=== PATIENT | female | born 1935 | race Caucasian/White ===

== ENCOUNTER 2017-08-08 11:02 | Outpatient (CLI) | payer MEDICARE | END 2017-08-08 11:03 | disposition home or self-care (01) | LOC: BICMAMMO 11:02 | PROVIDERS: ATTEND Internal Medicine | DX: Z12.31 Encounter for screening mammogram for malignant neoplasm of breast (principal) | CPT/HCPCS: 77063; 77067 ==

== ENCOUNTER 2017-11-26 20:36 | Inpatient (IN) | payer MEDICARE ==
[~2017-11-26 20:36] MED LIST: ISOVUE-370 76%-LOCM 1 ML ONE
[2017-11-26] MEDS ORDERED: HYDROcodone/Acetaminophen 5/325 mg Tablet ONE (21:08)
[2017-11-26 21:40] LABS: #Basophils 0.1 thou/uL (0.0-0.2); #Eosinphils 0.1 thou/uL (0.0-0.7); #Lymphocytes 1.9 thou/uL (1.20-3.40); #Monocytes 0.7 thou/uL (0.11-0.59); #Neutrophils 7.6 thou/uL (1.40-6.50); %Basophils 0.7 % (0.0-1.0); %Eosinophils 1.2 % (0.0-10.0); %Lymphocytes 17.9 % (21.0-51.0); %Monocytes 6.9 % (0.0-10.0); %Neutrophils 73.3 % (42.0-75.0); Hemoglobin 13.6 g/dL (12.0-16.0); Mean Corpuscular HGB CONC 34.1 g/dL (32.0-36.0); Mean Corpuscular Hemoglobin 29.5 pg (27.0-31.0); Mean Corpuscular Volume 86.5 fL (78.0-98.0); Mean Platelet Volume 6.7 fL (7.4-10.4); Platelet Count 222 thou/uL (130-400); RBC Distribution Width 13.5 % (11.5-14.5); Red Blood Cell (RBC) Count 4.59 mill/uL (4.20-5.40); White Blood Cell (WBC) Count 10.4 thou/uL (4.8-10.8)
[2017-11-26 21:43] LABS: INR-International Normal Ratio 1.5; PTT 39.8 SEC (22.9-36.1); Prothrombin Time 18.1 SEC (12.0-14.7)
[2017-11-26 21:53] LABS: ALT (SGPT) 19 U/L (8-55); AST (SGOT) 19 U/L (5-34); Albumin 4.4 g/dL (3.4-4.8); Alkaline Phosphatase 65 U/L (40-150); Anion Gap 12 mmol/L (10-20); BUN (Urea Nitrogen) 21 mg/dL (9.8-20.1); Bilirubin, Total 0.6 mg/dL (0.2-1.2); Calc. Creatinine Clearance 0 mL/min (70-130); Carbon Dioxide 28 mmol/L (23-31); Chloride 105 mmol/L (98-107); Estimated GFR-MDRD 49; Globulin 3.2 g/dL (2.4-3.5); Glucose 168 mg/dL (83-110); Lipase 55 U/L (8-78); Protein, Total 7.6 g/dL (6.0-8.3); Sodium 141 mmol/L (136-145)
--- NOTE | 2017-11-26 22:00 | RAD ---
RIGHT ELBOW FOUR VIEW: 11/26/17 HISTORY: Trauma. COMPARISON: None. FINDINGS: No acute displaced fracture or malalignment. Evidence of chronic medial and lateral epicondylitis. No significant joint effusion. IMPRESSION: No acute fracture or malalignment. POS: HOME
--- NOTE | 2017-11-26 22:01 | RAD ---
RIGHT KNEE TWO VIEW: 11/26/17 HISTORY: Trauma. COMPARISON: None. FINDINGS: No fracture. No malalignment. There is moderate vascular calcifications. IMPRESSION: No acute displaced fracture. POS: HOME
--- NOTE | 2017-11-26 22:03 | RAD ---
LEFT TIBIA AND FIBULA TWO VIEW: 11/26/17 HISTORY: Trauma. Injury. COMPARISON: None. FINDINGS: Tibia and fibula appear to be intact. Mild medial joint space narrowing. Low grade circumferential so ft tissue edema. IMPRESSION: No acute displaced fracture or malalignment. POS: HOME
[2017-11-26] MEDS ORDERED: Bupivacaine 0.5% 10 ML VIAL ONE (23:15)
--- NOTE | 2017-11-26 23:17 | CT ---
NONCONTRAST HEAD CT 11/26/17 HISTORY: Patient fell prior to arrival. Posttraumatic pain. COMPARISON: None. TECHNIQUE: Noncontrast head CT is performed from skull base to skull vertex. FINDINGS: There is a hyperdensity in the left parietal lobe with associated punctate calcifications. This lesio n measures 0.9 cm. 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 However, in th e setting of trauma, short term followup imaging is recommended to exclude a possible bleed associate d with the cavernoma. There are white matter hypodensities due to chronic small vessel ischemic whitehead e. Cortical jhaveri-white matter Differentiation is preserved. There is no hydrocephalus. The calvarium is intact. Adequate aeration o f the sinuses and mastoid air cells. IMPRESSION: Hyperdensity involving the left cerebrum as described above. Short term followup imaging should be pe rformed tomorrow morning. Results of the study discussed with Dr. Gonzalez, 11/26/17 at 10:59 p.m. Code CR POS: [facility]
--- NOTE | 2017-11-26 23:28 | CT ---
CHEST CT WITH CONTRAST ABDOMEN CT WITH CONTRAST PELVIC CT WITH CONTRAST LIMITED CT OF THE THORACIC AND LUMBAR SPINE 11/26/17 HISTORY: Left upper quadrant pain. Left chest pain. Status post fall. COMPARISON: None. FINDINGS: CHEST CT: No mediastinal mass, lymphadenopathy or hematoma. Heart size is within normal limits. No pericardial effusion. The thoracic aorta and abdominal aorta have an overall normal caliber. No periaortic fat st randing. There is significant atherosclerotic disease involving both renal arteries. Note is made of an IVC filter. Note is also made of a stent which appears to be in the left iliac vein. There are dependent atelectatic changes. No consolidation or mass. No significant pleural fluid. No p neumothorax. Trachea and central bronchi are patent. ABDOMEN CT: There is appropriate enhancement of the solid organs. No evidence of solid organ injury. There is no fluid in Wells's pouch. Adrenal glands are unremarkable. There is hypodensities involving the head and body of the pancreas. Possibility of a pancreatic neopl asm cannot be excluded. Evaluation is limited on this examination. Correlation made with an abdomen M RI report does document simple cystic lesions of the pancreas. Symmetric enhancement of the kidneys. No obstructive uropathy. No mesenteric mass, lymphadenopathy, free air or free fluid. Limited evaluation of the alimentary canal due to lack of oral contrast. No evidence of bowel obstruc tion. PELVIC CT: There are diverticula in the left hemicolon. No diverticulitis. No pelvic mass, lymphadenopathy, free air or free fluid. Unremarkable urinary bladder. Surgically absent uterus. There are fractures involving the left 7th, 8th, 9th, and 10th ribs. There is a hematoma in the overl anayeli soft tissues/musculature. Small hematoma involving the lateral abdominal muscles is noted. Bony pelvis is intact. No bony pelvic fractures. LIMITED CT OF THE THORACIC AND LUMBAR SPINE: Limited CT of the thoracic and lumbar spine demonstrates extensive degenerative change. Thoracic and lumbar spine vertebral body height is maintained. There is no fracture. There is mild leftward curvat ure of the upper lumbar spine. IMPRESSION: 1. Left rib fractures as described above. No associated pneumothorax. 2. Hypodensities associated with the pancreas. Patient has known cystic lesions of the pancreas. Results of the study discussed with Carlos, 11/26/17 at 11:12 p.m. Code CR POS: [facility]
[2017-11-27] MEDS ORDERED: Ondansetron HCl/PF 4 MG/2 ML Vial IVP PRN (01:10)
[2017-11-27] MEDS ORDERED: Ondansetron ODT 4 MG TAB SL PRN (01:10)
[2017-11-27] MEDS ORDERED: Acetaminophen 325 MG TAB PO PRN (01:10)
[2017-11-27 01:45] VITALS: BMI 26.7
[2017-11-27] MEDS ORDERED: Dextrose 5% in Water 1,000 ML IV PRN (04:08)
[2017-11-27] MEDS ORDERED: Dextrose 50% Abboject 50 ML SYRINGE SLOW IVP PRN (04:08)
[2017-11-27] MEDS ORDERED: Sodium Chloride 0.9% 1,000 ML IV SCH (04:08)
[2017-11-27 04:49] LABS: #Lymphocytes 1.6 thou/uL (1.20-3.40); #Monocytes 0.6 thou/uL (0.11-0.59); #Neutrophils 5.7 thou/uL (1.40-6.50); %Basophils 0.4 % (0.0-1.0); %Eosinophils 0.4 % (0.0-10.0); %Lymphocytes 19.9 % (21.0-51.0); %Monocytes 7.3 % (0.0-10.0); Hemoglobin 12.1 g/dL (12.0-16.0); Mean Corpuscular Volume 90.8 fL (78.0-98.0); Mean Platelet Volume 7.1 fL (7.4-10.4); Platelet Count 202 thou/uL (130-400); RBC Distribution Width 13.3 % (11.5-14.5); Red Blood Cell (RBC) Count 4.04 mill/uL (4.20-5.40)
[2017-11-27 04:52] LABS: INR-International Normal Ratio 1.5; PTT 38.2 SEC (22.9-36.1); Prothrombin Time 17.8 SEC (12.0-14.7)
[2017-11-27 04:59] LABS: Anion Gap 12 mmol/L (10-20); BUN (Urea Nitrogen) 18 mg/dL (9.8-20.1); Calc. Creatinine Clearance 52 mL/min (70-130); Calcium 9.4 mg/dL (7.8-10.44); Carbon Dioxide 27 mmol/L (23-31); Chloride 105 mmol/L (98-107); Estimated GFR-MDRD 61; Glucose 129 mg/dL (83-110); Magnesium 2.2 mg/dL (1.6-2.6); Phosphorus 3.8 mg/dL (2.3-4.7); Potassium 4.1 mmol/L (3.5-5.1); Sodium 140 mmol/L (136-145)
[2017-11-27] MEDS: traMADol HCl 50 MG TAB PO PRN ×3 (05:40→20:16)
--- NOTE | 2017-11-27 06:42 | HP ---
DATE OF ADMISSION: 11/27/2017 REQUESTING PHYSICIAN: Dr. Gonzalez. ATTENDING SURGEON: Dr. Wallace. CONSULTATIONS: Neurosurgery, Dr. Nguyen. HISTORY OF PRESENT ILLNESS: Patient is an 82-year-old woman who was moving a table this ev ening. When she lost her footing, slipped and fell, hitting her right knee on the ground and hitting her left side of her chest on the table. The patient denied any loss of consciousness or hitting he r head. She denied any syncopal type episodes around her fall only that she lost her footing trying to move a table. The patient was driven by her to the emergency room in [facility], where she underwent evaluation and examination and was noted to have history of Xarelto use, so curt brewer underwent a head CT, which showed a cavernoma, which there was concern of a delayed bleed, so we we re asked to evaluate the patient for admission and neurosurgical consultation. Patient also underwen t CT of the chest, abdomen, and pelvis which showed left-sided rib fractures, which again for pain co ntrol reasons were asked to admit the patient. While in the emergency department in [facility], patient received a rib block by Dr. Gonzalez, which the patient states helped greatly to allow her to breathe deeper. ALLERGIES: None. CURRENT MEDICATIONS: Nexium, levothyroxine, Xarelto, potassium, allopurinol, metoprolol, furosemide, amlodipine-valsartan, simvastatin, alprazolam, montelukast, tramadol, vitamin D, and vitamin B. PAST MEDICAL HISTORY: History of recurrent DVTs, history of pulmonary embolus. Chronic back pain, s coliosis, osteoarthritis, hypothyroidism, hypertension, hyperlipidemia, anxiety and depression. PAST SURGICAL HISTORY: Right knee replacement, IVC filter placement, hysterectomy, cholecystectomy, appendectomy, tonsillectomy, and skin biopsy of the right arm. Cardiac catheterization without stent placement. SOCIAL HISTORY: Patient lives at home with her , in which she is the primary caregiver for lori m. She denies drug, tobacco, or alcohol use. FAMILY HISTORY: High blood pressure. REVIEW OF SYSTEMS: A 10-point review of systems was negative as otherwise stated. PHYSICAL EXAMINATION: VITAL SIGNS: Temperature is 97.6, heart rate 62, blood pressure 140/54, respirations 18, oxygen satu ration is 95% on 2 liters via nasal cannula. GENERAL: The patient is resting comfortably in bed. She is awake, alert, and oriented. Her Java coma scale is 15. HEENT: Head is normocephalic, atraumatic. Eyes: Extraocular motion intact. PERRLA bilaterally. E ars are atraumatic without discharge. Nose are atraumatic without discharge. Oropharynx is clear. NECK: Nontender. Trachea is midline. No JVD. CHEST: Clear to auscultation with good inspiratory and expiratory effort. Patient is able to get to 1500 on her incentive spirometry left side of chest. It is tender consistent with her fractures, th ough patient states that this is much better than it was prior to her nerve block. HEART: Regular rate and rhythm. ABDOMEN: Soft, flat, nontender with active bowel sounds. Pelvis is stable. EXTREMITIES: Neurovascularly intact x4. Bilateral lower extremities have 1-2+ pitting edema and she has slight tenderness to her right knee. There is no evidence of contusion. She had good range of motion. BACK: Atraumatic and nontender. LABORATORY FINDINGS: White blood cell count 10.4, hemoglobin 13.6, hematocrit 39.7, platelets 222. Sodium 141, potassium 4.0, chloride 105, CO2 of 28, BUN 21, creatinine 1.07, glucose 168. LFTs are u nremarkable. PT 18, INR 1.5, PTT 40. RADIOGRAPHIC FINDINGS: CT of the brain without contrast shows hyperdensity involving the left cerebr um as described in the body of the report, which shows a 0.[address] of the chest, ab domen, and pelvis with IV contrast shows fractures of the left 7th, 8th, 9th and 10th ribs, otherwise no acute findings. Plain radiographs of the right elbow show no fracture or dislocation. Radiograp hs of the right knee showed no acute displaced fracture, is of the left tibia and fibula showed no ac cash displaced fracture or malalignment. ASSESSMENT AND PLAN: 1. Status post ground level fall. 2. Multiple left rib fractures. 3. Acute pain secondary to trauma. 4. 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 5. History of Xarelto use. 6. History of hypertension. 7. History of hyperlipidemia. 8. History of deep venous thrombosis and pulmonary embolism. PLAN: We will be to admit the patient to the [facility] for frequent neuro exams per discussion with the N eurosurgery. Patient will have a repeat head CT in the morning. She will also have modified rib fra cture protocol. We will avoid nonsteroidals at this time until we have clearance by Neurosurgery. W e will be discussed that the patient is got a significant wrist for clotting with her previous histor y and we will sure we have discussion with them regarding returning her Xarelto use. The evaluation, examination, laboratory and radiographic finding will be discussed with Dr. Wallace after this dictat ion. The patient will be seen this morning in rounds also by the trauma team.
--- NOTE | 2017-11-27 07:24 | CON ---
DATE OF CONSULTATION: 11/27/2017 HISTORY OF PRESENT ILLNESS: The patient is an 82-year-old female on Eliquis for history of DVTs, who presented to the emergency department for mechanical fall. The patient reports she was attempting to move a piece of furniture when she lost her footing and fell along her left chest and onto her right knee. She denies head injury; however, considering her Eliquis use, CT head was done which was notable for hyperdensity in the left parietal region. Concerning for chronic cavernoma versus acute intracranial hemorrhage. Neurosurgery service was consulted for further evaluation of this abnormality. I am seeing the patient at the bedside. She is awake and alert, in no acute distress. She has no focal neurologic deficits on her exam. PAST MEDICAL HISTORY: Notable for chronic back and neck pain, scoliosis, arthritis, history of DVT and PE on Plavix, hypothyroidism, hypertension. PAST SURGICAL HISTORY: Right knee replacement, IVC filter, hysterectomy, cholecystectomy, appendectomy, tonsillectomy. SOCIAL HISTORY: The patient lives at home. She does not smoke, drink or use any drugs. ALLERGIES: She has no known drug allergies. REVIEW OF SYSTEMS: Per HPI. PHYSICAL EXAMINATION: GENERAL: The patient is sitting comfortably in the chair, no acute distress. HEAD: Normocephalic, atraumatic. EYES: PERRLA. Extraocular movements intact. ENT: Oral mucosa is pink and moist. She has normal voice. NECK: Nontender to palpation. Free active range of motion, no meningismus or nuchal rigidity. CARDIOVASCULAR: Regular rate and rhythm. LUNGS: She has tenderness to palpation of the left chest and pain with any movement. MUSCULOSKELETAL: She has free active range of motion of all extremities. No focal motor weakness, no reflex asymmetry. NEUROLOGIC: She is alert and oriented x4 with no focal neurologic deficits. ASSESSMENT AND PLAN: This is an 82-year-old female on Eliquis for history of deep venous thrombosis/pulmonary embolus who had a mechanical fall, but no head injury. CT was done, which showed abnormality, acute intracranial hemorrhage versus cavernoma; however, repeat scan this morning is also stable. We do not feel that this represents any acute process and the patient can follow up with us for abnormality on an outpatient basis. Please reach out to Neurosurgery for additional questions or concerns. SOWMYA
--- NOTE | 2017-11-27 07:33 | CT ---
CT BRAIN WITHOUT CONTRAST: HISTORY: Fall. On Eliquis. COMPARISON: CT brain prior day. FINDINGS: The focal hyperdensity in the left cerebrum is unchanged in the parietal lobe with some punctate calc ifications. This measures approximately 8 x 9 mm. No new focal area of hemorrhage. No midline shif t or mass effect. Unchanged chronic microvascular ischemic changes. The calvarium is intact. Paranasal sinuses and ma stoids are clear. IMPRESSION: Unchanged hyperdensity on the left parietal lobe with associated small calcifications most indicative of a cavernoma. No blooming to suggest associated hemorrhage within the cavernoma. POS: [facility]
--- NOTE | 2017-11-27 08:39 | RAD ---
PORTABLE CHEST: Date: 11/27/17 HISTORY: Patient is status post fall. Follow-up of rib fracture. FINDINGS: Heart size is enlarged. There are atherosclerotic changes of the aorta. There are subsegmental atelec tatic changes in the lung bases. No pneumothorax is seen. No definitive rib fracture is visualized on this film. IMPRESSION: Subsegmental atelectatic changes lung bases. POS: [facility]
[2017-11-27] MEDS: Famotidine 20 MG TAB PO SCH (09:19)
[2017-11-27] MEDS: Gabapentin 300 MG CAP PO SCH ×2 (09:19→20:16)
[2017-11-28 06:09] LABS: #Eosinphils 0.1 thou/uL (0.0-0.7); #Lymphocytes 2.2 thou/uL (1.20-3.40); #Monocytes 0.7 thou/uL (0.11-0.59); #Neutrophils 3.2 thou/uL (1.40-6.50); %Basophils 0.7 % (0.0-1.0); %Eosinophils 1.7 % (0.0-10.0); %Monocytes 10.5 % (0.0-10.0); %Neutrophils 52.1 % (42.0-75.0); Hemoglobin 11.6 g/dL (12.0-16.0); Mean Corpuscular HGB CONC 33.3 g/dL (32.0-36.0); Mean Corpuscular Hemoglobin 30.7 pg (27.0-31.0); Mean Corpuscular Volume 92.1 fL (78.0-98.0); Mean Platelet Volume 7.4 fL (7.4-10.4); Platelet Count 190 thou/uL (130-400); RBC Distribution Width 13.4 % (11.5-14.5); Red Blood Cell (RBC) Count 3.79 mill/uL (4.20-5.40); White Blood Cell (WBC) Count 6.1 thou/uL (4.8-10.8)
[2017-11-28 06:14] LABS: INR-International Normal Ratio 1.1; PTT 35.2 SEC (22.9-36.1); Prothrombin Time 14.8 SEC (12.0-14.7)
[2017-11-28 06:15] LABS: Anion Gap 6 mmol/L (10-20); BUN (Urea Nitrogen) 20 mg/dL (9.8-20.1); Calc. Creatinine Clearance 51 mL/min (70-130); Calcium 9.3 mg/dL (7.8-10.44); Carbon Dioxide 32 mmol/L (23-31); Chloride 105 mmol/L (98-107); Estimated GFR-MDRD 60; Glucose 94 mg/dL (83-110); Potassium 3.8 mmol/L (3.5-5.1); Sodium 139 mmol/L (136-145)
[2017-11-28] MEDS: traMADol HCl 50 MG TAB PO PRN ×2 (08:41→14:00)
[2017-11-28] MEDS: Famotidine 20 MG TAB PO SCH (08:41)
[2017-11-28 12:00] VITALS: BP 120/45; TEMP 98.1
[2017-11-28] MEDS ORDERED: traMADol HCl 50 MG TAB PO PRN (14:11)
[2017-11-28] MEDS ORDERED: Acetaminophen/Codeine 30-300mg Tablet PO PRN ×2 (14:12)
[2017-11-28] MEDS ORDERED: Non-Formulary Item 1 EACH (Linaclotide [Linzess] 145 MCG) PO SCH (14:15)
[2017-11-28] MEDS ORDERED: Simvastatin 40 MG TAB PO SCH (21:00)
[2017-11-28] MEDS ORDERED: ALPRAZolam 0.25 MG TAB PO SCH (21:00)
[2017-11-28] MEDS ORDERED: Furosemide 20 MG TAB PO SCH (21:00)
[2017-11-29] MEDS ORDERED: Stress 600 With Zinc 1 TAB PO SCH (09:00)
[2017-11-29] MEDS ORDERED: Montelukast Sodium 10 mg Tablet PO SCH (09:00)
[2017-11-29] MEDS ORDERED: Cholecalciferol (Vitamin D3) 400 UNITS TAB PO SCH (09:00)
[2017-11-29] MEDS ORDERED: Allopurinol 300 MG TAB PO SCH (09:00)
[2017-11-29] MEDS ORDERED: Levothyroxine Sodium 50 MCG TAB PO SCH (09:00)
[2017-11-29] MEDS ORDERED: AMLODIPINE PO SCH (09:00)
[2017-11-29] MEDS ORDERED: VALSARTAN PO SCH (09:00)
[2017-11-29] MEDS ORDERED: Potassium Chloride 8 MEQ TAB PO SCH (09:00)
[2017-11-29] MEDS ORDERED: Rivaroxaban 10 MG TAB PO SCH (09:00)
[2017-11-29] MEDS ORDERED: Furosemide 40 MG TAB PO SCH (09:00)
== END 2017-11-28 15:34 | disposition home or self-care (01) | DRG 313 ==
LOC: SCSER 20:36 → IMCU/EMU 11-27 00:03
PROVIDERS: ADMIT Specialist; ATTEND Specialist
DX: R07.9 Chest pain, unspecified (principal); W01.0XXA Fall on same level from slipping, tripping and stumbling without subsequent striking against object, initial encounter; Y93.E9 Activity, other interior property and clothing maintenance; Y99.8 Other external cause status; R10.12 Left upper quadrant pain; M25.561 Pain in right knee; M79.662 Pain in left lower leg; M25.521 Pain in right elbow; I10 Essential (primary) hypertension
CPT/HCPCS: 36415; 70450; 71045; 71260; 74177; 80048; 80053; 83690; 83735; 84100; 85025; 85610; 85730; 93005; 94640; 96374; G8978-GP-CK; G8979-GP-CJ; G8987-GO-CJ; G8988-GO-CJ; G8989-GO-CJ; G9165-GN-CH; G9166-GN-CH; J2270; J3490; J7620

== ENCOUNTER 2018-08-08 10:16 | Outpatient (CLI) | payer MEDICARE ==
--- NOTE | 2018-08-08 11:25 | MMO ---
Bilateral MAMMO Bilat Screen [facility]. CLINICAL HISTORY: Patient is 83 years old and is seen for screening. The patient has no family history of breast cancer. The patient has no personal history of cancer. The patient has a history of right needle biopsy - benign. VIEWS: The views performed were: bilateral craniocaudal with tomosynthesis and bilateral mediolateral oblique with tomosynthesis. FILMS COMPARED: The present examination has been compared to prior imaging studies performed at [facility] on 08/08/2017, at [facility] on 06/13/2015 and 07/04/2016, and at [facility] on 05/20/2014 and 05/21/2014. MAMMOGRAM FINDINGS: There are scattered fibroglandular densities. Finding 1: There are stable post operative changes seen in the right breast. Finding 2: There are benign appearing calcifications seen in both breasts. There are no suspicious masses, suspicious calcifications, or new areas of architectural distortion. IMPRESSION: THERE IS NO MAMMOGRAPHIC EVIDENCE OF MALIGNANCY. A ROUTINE FOLLOW-UP MAMMOGRAM IN 1 YEAR IS RECOMMENDED. THE RESULTS OF THIS EXAM WERE SENT TO THE PATIENT. ACR BI-RADS Category 2 - Benign finding MAMMOGRAPHY NOTE: 1. A negative mammogram report should not delay a biopsy if a dominant of clinically suspicious mass is present. 2. Approximately 10% to 15% of breast cancers are not detected by mammography. 3. Adenosis and dense breasts may obscure an underlying neoplasm.
--- NOTE | 2018-08-08 11:46 | BD ---
DEXA BONE DENSITY STUDY: Date: 08/08/18 COMPARISON: 02/04/06. HISTORY: 83-year-old postmenopausal female for screening. FINDINGS: Lumbar Spine: BMD (g/cm2) L1 1.238 T-Score: 2.3 L2 1.179 T-Score: 1.4 L3 1.020 T-Score: -0.6 L4 1.112 T-Score: 0.5 L1-L4 1.132 T-Score: 0.8 Left Femoral Neck: 0.534 T-Score: -2.8 Total Femur: 0.832 T-Score: -0.9 IMPRESSION: Osteoporosis. This patient has a 7x increased risk of fracture when compared with young patients with normal bone mineral density. POS: [facility]
== END 2018-08-08 10:17 | disposition home or self-care (01) ==
LOC: BICMAMMO 10:16
PROVIDERS: ATTEND Internal Medicine
DX: Z12.31 Encounter for screening mammogram for malignant neoplasm of breast (principal); Z78.0 Asymptomatic menopausal state; M81.0 Age-related osteoporosis without current pathological fracture
CPT/HCPCS: 77063; 77067; 77080

== ENCOUNTER 2018-09-01 13:55 | Outpatient (CLI) | payer MEDICARE ==
--- NOTE | 2018-09-01 15:42 | RAD ---
2 VIEW CHEST: Date: 09/01/18 HISTORY: Cough. COMPARISON: 12/23/17. FINDINGS: Mild cardiomegaly is stable. Lungs show no evidence of infiltrate. Vascular markings within normal ra nge and stable. Subtle nodule in the peripheral right lung is unchanged. No evidence of effusion. Sc oliotic curvature of the spine is again noted. Prominent aortic calcification again seen. IMPRESSION: Chronic chest findings as discussed above are stable. No acute process apparent. POS: [facility]
== END 2018-09-01 13:56 | disposition home or self-care (01) ==
LOC: BICRAD 13:55
PROVIDERS: ATTEND Internal Medicine
DX: R05 Cough (principal)
CPT/HCPCS: 71046

== ENCOUNTER 2019-03-25 14:19 | Outpatient (CLI) | payer MEDICARE ==
--- NOTE | 2019-03-25 14:43 | RAD ---
FRONTAL AND LATERAL IMAGING OF THE THORACIC SPINE: DATE: 03/25/2019. COMPARISON: 03/09/2010. HISTORY: Back pain. FINDINGS: There is a moderate degree of levoscoliosis at the thoracolumbar junction, progressed significantly s christine the prior exam. There is atherosclerotic calcification of the aortic arch and descending thoracic aorta. There is no anterolisthesis or retrolisthesis noted within the thoracic spine. Partially imaged cervical spine demonstrates prominent multilevel disc space narrowing with degenerat jean endplate change and anterior osteophyte formation. At C3-4 there is anterolisthesis measuring at least 5 mm, incompletely assessed on this exam. There is multilevel disc space narrowing with degenerative endplate change and anterior osteophyte fo rmation within the mid thoracic and lower thoracic spine. Imaged cervical spine demonstrates prominent multilevel disc space narrowing and degenerative endplate change with right lateral osteoph yte formation. Dedicated imaging of the lumbar spine is advised. There is a mild new degree of dextroscoliosis of the upper thoracic spine. These areas of scoliotic curvature are degenerative in n ature. No acute fracture is appreciated. IMPRESSION: Multilevel degenerative change, progressed since the prior examination, with associated scoliosis. Transcribed Date/Time: 03/25/2019 2:49 PM
--- NOTE | 2019-03-25 15:33 | RAD ---
LUMBAR SPINE: 03/25/19 Two views. AP and lateral views obtained weightbearing. INDICATIONS: Back pain. COMPARISON: Comparison made to lumbar films of 11/04/13. Slight scoliotic curvature of the lumbar spine has increased since prior exam. The inferior vena cava filter is again noted. On the lateral projection, there are prominent degenerative changes with prominent osteophytes from t he L1, L2, L3, and L4 vertebrae. There is loss of height involving L1, L2, and L3 vertebra with loss of disc space and prominent degenerative change. Facet hypertrophy. The degenerative changes at L1, L2, and L3 have progressed when compared to the 2014 exam. IMPRESSION: Moderate to severe degenerative changes of the lumbar spine with slight scoliotic curvature. POS: [facility]
== END 2019-03-25 14:20 | disposition home or self-care (01) ==
LOC: BICRAD 14:19
PROVIDERS: ATTEND Internal Medicine
DX: M54.9 Dorsalgia, unspecified (principal); M47.816 Spondylosis without myelopathy or radiculopathy, lumbar region; M47.814 Spondylosis without myelopathy or radiculopathy, thoracic region; M41.9 Scoliosis, unspecified
CPT/HCPCS: 72072; 72100

== ENCOUNTER 2019-11-25 13:01 | Outpatient (CLI) | payer MEDICARE ==
--- NOTE | 2019-11-25 14:24 | MMO ---
Bilateral MAMMO Bilat Screen [facility]. CLINICAL HISTORY: Patient is 84 years old and is seen for screening. The patient has no family history of breast cancer. The patient has no personal history of cancer. The patient has a history of right needle biopsy - benign. VIEWS: The views performed were: bilateral craniocaudal with tomosynthesis and bilateral mediolateral oblique with tomosynthesis. FILMS COMPARED: The present examination has been compared to prior imaging studies performed at [facility] on 08/08/2017 and 08/08/2018, and at [facility] on 06/13/2015 and 07/04/2016. This study has been interpreted with the assistance of computer-aided detection. MAMMOGRAM FINDINGS: There are scattered fibroglandular densities. Finding 1: Benign calcifications are noted bilaterally. Finding 2: There are stable post operative changes seen in the right breast. There are no suspicious masses, suspicious calcifications, or new areas of architectural distortion. IMPRESSION: THERE IS NO MAMMOGRAPHIC EVIDENCE OF MALIGNANCY. A ROUTINE FOLLOW-UP MAMMOGRAM IN 1 YEAR IS RECOMMENDED. THE RESULTS OF THIS EXAM WERE SENT TO THE PATIENT. ACR BI-RADS Category 2 - Benign finding MAMMOGRAPHY NOTE: 1. A negative mammogram report should not delay a biopsy if a dominant of clinically suspicious mass is present. 2. Approximately 10% to 15% of breast cancers are not detected by mammography. 3. Adenosis and dense breasts may obscure an underlying neoplasm. Reported by: TIM ACOSTA MD Electonically Signed: [id number]
== END 2019-11-25 13:02 | disposition home or self-care (01) ==
LOC: BICMAMMO 13:01
PROVIDERS: ATTEND Internal Medicine
DX: Z12.31 Encounter for screening mammogram for malignant neoplasm of breast (principal); Z91.89 Other specified personal risk factors, not elsewhere classified
CPT/HCPCS: 77063; 77067

== ENCOUNTER 2021-09-04 08:56 | Outpatient (CLI) | payer MEDICARE | END 2021-09-04 08:57 | disposition home or self-care (01) | LOC: BICMAMMO 08:56 | PROVIDERS: ATTEND Internal Medicine | DX: Z13.820 Encounter for screening for osteoporosis (principal); M81.0 Age-related osteoporosis without current pathological fracture; M85.851 Other specified disorders of bone density and structure, right thigh; Z78.0 Asymptomatic menopausal state | CPT/HCPCS: 77080 ==

== ENCOUNTER 2021-09-14 16:19 | Observation (INO) | payer MEDICARE ==
[2021-09-14 17:01] LABS: #Eosinphils 0.1 thou/uL (0.0-0.7); #Lymphocytes 2.3 thou/uL (1.20-3.40); #Monocytes 0.5 thou/uL (0.11-0.59); #Neutrophils 3.6 thou/uL (1.40-6.50); %Basophils 0.3 % (0.0-1.0); %Eosinophils 2.2 % (0.0-10.0); %Lymphocytes 34.9 % (21.0-51.0); %Monocytes 7.4 % (0.0-10.0); %Neutrophils 55.2 % (42.0-75.0); Mean Corpuscular HGB CONC 31.6 g/dL (32.0-36.0); Mean Corpuscular Hemoglobin 29.7 pg (27.0-31.0); Platelet Count 229 thou/uL (130-400); RBC Distribution Width 12.3 % (11.5-14.5); Red Blood Cell (RBC) Count 5.06 mill/uL (4.20-5.40); White Blood Cell (WBC) Count 6.6 thou/uL (4.8-10.8)
[2021-09-14 17:37] LABS: ALT (SGPT) 12 U/L (8-55); AST (SGOT) 16 U/L (5-34); Albumin 4.3 g/dL (3.4-4.8); Alkaline Phosphatase 61 U/L (40-110); Anion Gap 15 mmol/L (10-20); BUN (Urea Nitrogen) 25 mg/dL (9.8-20.1); Bilirubin, Total 0.5 mg/dL (0.2-1.2); Calc. Creatinine Clearance 0 mL/min (70-130); Calcium 9.8 mg/dL (7.8-10.44); Carbon Dioxide 27 mmol/L (23-31); Chloride 105 mmol/L (98-107); Globulin 2.8 g/dL (2.4-3.5); Glucose 134 mg/dL (83-110); Magnesium 2.3 mg/dL (1.6-2.6); Potassium 4.3 mmol/L (3.5-5.1); Protein, Total 7.1 g/dL (5.8-8.1); Sodium 143 mmol/L (136-145)
[2021-09-14 17:45] LABS: CKMB 0.8 ng/mL (0-6.6)
[2021-09-14] MEDS ORDERED: Aspirin Chewable 81 MG TAB ONE (20:36)
[2021-09-14 21:33] LABS: Troponin I 0.044 ng/mL (< 0.028)
[2021-09-14] MEDS ORDERED: Simvastatin 40 MG TAB PO SCH (21:36)
[2021-09-14] MEDS ORDERED: ALPRAZolam 0.25 MG TAB PO SCH (21:45)
[2021-09-14] MEDS ORDERED: Atorvastatin Calcium 20 MG TAB PO SCH (22:00)
[2021-09-14] MEDS ORDERED: Bisacodyl 5 MG TAB PO PRN (22:30)
[2021-09-14] MEDS ORDERED: Senokot S 8.6-50 MG TAB PO PRN (22:30)
[2021-09-14] MEDS ORDERED: Acetaminophen 325 MG TAB PO PRN (22:30)
[2021-09-14] MEDS ORDERED: Sodium Chloride 0.9% 1,000 ML IV SCH (23:45)
[2021-09-15 00:11] VITALS: BMI 26.5
[2021-09-15] MEDS ORDERED: Ondansetron PF 4 MG/2 ML Vial IVP PRN (00:45)
[2021-09-15] MEDS ORDERED: Ondansetron ODT 4 MG TAB SL PRN (00:45)
[2021-09-15 01:23] LABS: Troponin I 0.037 ng/mL (< 0.028)
[2021-09-15 05:31] LABS: #Eosinphils 0.2 thou/uL (0.0-0.7); #Lymphocytes 2.5 thou/uL (1.20-3.40); #Monocytes 0.6 thou/uL (0.11-0.59); #Neutrophils 3.2 thou/uL (1.40-6.50); %Basophils 0.4 % (0.0-1.0); %Eosinophils 2.9 % (0.0-10.0); %Lymphocytes 38.3 % (21.0-51.0); %Monocytes 9.8 % (0.0-10.0); %Neutrophils 48.6 % (42.0-75.0); Hemoglobin 13.1 g/dL (12.0-16.0); Mean Corpuscular Hemoglobin 30.9 pg (27.0-31.0); Mean Corpuscular Volume 93.8 fL (78.0-98.0); Mean Platelet Volume 7.2 fL (7.4-10.4); Platelet Count 212 thou/uL (130-400); RBC Distribution Width 12.2 % (11.5-14.5); Red Blood Cell (RBC) Count 4.25 mill/uL (4.20-5.40); White Blood Cell (WBC) Count 6.6 thou/uL (4.8-10.8)
[2021-09-15 05:43] LABS: ALT (SGPT) 9 U/L (8-55); AST (SGOT) 10 U/L (5-34); Albumin 3.6 g/dL (3.4-4.8); Alkaline Phosphatase 49 U/L (40-110); Anion Gap 11 mmol/L (10-20); BUN (Urea Nitrogen) 19 mg/dL (9.8-20.1); Bilirubin, Total 0.6 mg/dL (0.2-1.2); Calc. Creatinine Clearance 48 mL/min (70-130); Calcium 9.2 mg/dL (7.8-10.44); Carbon Dioxide 28 mmol/L (23-31); Cardiac Risk 2.9 (Less than 4.5); Chloride 107 mmol/L (98-107); Cholesterol 121 mg/dl (< 200 Desired); Globulin 2.6 g/dL (2.4-3.5); Glucose 95 mg/dL (83-110); HDL Cholesterol 42 mg/dL (>60 Neg Risk); LDL Cholesterol, Calculated 67 mg/dL; Potassium 3.6 mmol/L (3.5-5.1); Protein, Total 6.2 g/dL (5.8-8.1); Sodium 142 mmol/L (136-145); Triglycerides 62 mg/dL (Less than 150)
[2021-09-15] MEDS ORDERED: Levothyroxine Sodium 50 MCG TAB PO SCH (06:00)
[2021-09-15] MEDS ORDERED: Furosemide 40 MG TAB PO SCH (07:30)
[2021-09-15] MEDS ORDERED: Valsartan 80 MG TAB PO SCH (09:00)
[2021-09-15] MEDS ORDERED: Amlodipine 10 MG TAB PO SCH (09:00)
[2021-09-15] MEDS ORDERED: VALSARTAN PO SCH (09:00)
[2021-09-15] MEDS ORDERED: Montelukast Sodium 10 mg Tablet PO SCH (09:00)
[2021-09-15] MEDS ORDERED: AMLODIPINE PO SCH (09:00)
[2021-09-15 11:45] LABS: SARS-CoV-2 PCR by NAA Not Detected (NotDetected)
[2021-09-15 16:23] VITALS: TEMP 97.9
[2021-09-15 16:51] VITALS: BP 157/73
[2021-09-15] MEDS ORDERED: Furosemide 20 MG TAB PO SCH (18:00)
[2021-09-15] MEDS ORDERED: Atorvastatin Calcium 20 MG TAB PO SCH (21:00)
[2021-09-15] MEDS ORDERED: ALPRAZolam 0.25 MG TAB PO SCH (21:00)
[2021-09-15] MEDS ORDERED: Magnesium Oxide 250 MG TAB PO SCH (21:00)
[2021-09-16] MEDS ORDERED: Potassium Chloride 8 MEQ TAB PO SCH (09:00)
[2021-09-16] MEDS ORDERED: Rivaroxaban 10 MG TAB PO SCH (09:00)
[2021-09-16] MEDS ORDERED: Aspirin 81 mg Enteric Coated Tablet PO SCH (09:00)
== END 2021-09-15 19:33 | disposition home or self-care (01) ==
LOC: ERS 16:19 → NEURO 22:30
PROVIDERS: ADMIT Family Medicine; ATTEND Family Medicine
DX: I63.9 Cerebral infarction, unspecified (principal); N17.9 Acute kidney failure, unspecified; E03.9 Hypothyroidism, unspecified; R77.8 Other specified abnormalities of plasma proteins; I10 Essential (primary) hypertension; I73.9 Peripheral vascular disease, unspecified; E78.5 Hyperlipidemia, unspecified; M41.9 Scoliosis, unspecified; I08.8 Other rheumatic multiple valve diseases; Z86.711 Personal history of pulmonary embolism; Z86.718 Personal history of other venous thrombosis and embolism; Z79.890 Hormone replacement therapy; Z79.899 Other long term (current) drug therapy; Z91.048 Other nonmedicinal substance allergy status; Z20.822 Contact with and (suspected) exposure to COVID-19
CPT/HCPCS: 70450; 70553; 71045; 80053; 80061; 82553; 83735; 84484 ×3; 85025; 93005; 93306; 93880; 97116; 97139 ×2; 97535; 99285; U0003; U0005; 36415; 84443; G0378; J7050

== ENCOUNTER 2021-10-24 09:41 | Outpatient (CLI) | payer MEDICARE ==
[~2021-10-24 09:41] MED LIST changes: +Gadobenate Dimeglumine 529 MG/1 ML (20ML VIAL) ONE; -ISOVUE-370 76%-LOCM 1 ML ONE
== END 2021-10-24 09:42 | disposition home or self-care (01) ==
LOC: MRI 09:41
PROVIDERS: ATTEND Internal Medicine
DX: I63.9 Cerebral infarction, unspecified (principal); R90.89 Other abnormal findings on diagnostic imaging of central nervous system
CPT/HCPCS: 70553; A9577

== ENCOUNTER 2021-12-12 10:06 | Outpatient (CLI) | payer MEDICARE | END 2021-12-12 10:07 | disposition home or self-care (01) | LOC: BICMAMMO 10:06 | PROVIDERS: ATTEND Internal Medicine | DX: Z12.31 Encounter for screening mammogram for malignant neoplasm of breast (principal); Z91.89 Other specified personal risk factors, not elsewhere classified | CPT/HCPCS: 77063; 77067 ==

== ENCOUNTER 2022-12-13 10:58 | Day surgery (SDC) | payer MEDICARE ==
[2022-12-12 12:24] VITALS: BMI 26.5
[~2022-12-13 10:58] MED LIST changes: +EPINEPHrine 0.3 MG in Ophthalmic Irrigation Solution 500 ML IRR SCH; -Gadobenate Dimeglumine 529 MG/1 ML (20ML VIAL) ONE; +Midazolam HCl 2 mg/2 ml Vial ONE; +fentaNYL 50 mcg/mL 1 mL Vial ONE
[2022-12-13] MEDS ORDERED: Cyclopentolate 0.5% Opth Drops 15 ML BOT ONE (11:50)
[2022-12-13] MEDS ORDERED: PHENYLephrine 2.5% Ophth Soln 15 ml Bottle ONE (11:50)
[2022-12-13] MEDS ORDERED: Maxitrol 0.1% Opth Oint 3.5 GM TUBE ONE (12:32)
[2022-12-13] MEDS ORDERED: Bupivacaine 0.75% 10 ML VIAL ONE (12:32)
[2022-12-13] MEDS ORDERED: CEFAZOLIN 1 GM VIAL ONE (12:32)
[2022-12-13] MEDS ORDERED: PROPOFOL 200 MG/20 ML VIAL ONE (12:32)
[2022-12-13] MEDS ORDERED: Lidocaine 4% PF 5 ML AMP ONE (12:32)
[2022-12-13] MEDS ORDERED: Lidocaine 1% PF 5 ML VIAL ONE (12:32)
[2022-12-13] MEDS ORDERED: Triamcinolone 40 MG/ML VIAL ONE (12:32)
== END 2022-12-13 15:00 | disposition home or self-care (01) ==
LOC: SDC 10:58
PROVIDERS: ATTEND Ophthalmology Retina Specialist
PROC: 08T53ZZ Resection of Left Vitreous, Percutaneous Approach (ICD-10-PCS; principal; 2022-12-13)
PROC: 08133J4 Bypass Left Anterior Chamber to Sclera with Synthetic Substitute, Percutaneous Approach (ICD-10-PCS; 2022-12-13)
DX: H40.89 Other specified glaucoma (principal)
CPT/HCPCS: 66180; 67040; C1762; J3010; J0171; J0690; J2250; J2704; J3301; J3490; L8612

== ENCOUNTER 2023-01-08 09:45 | Outpatient (CLI) | payer MEDICARE | END 2023-01-08 09:46 | disposition home or self-care (01) | LOC: BICMAMMO 09:45 | PROVIDERS: ATTEND Internal Medicine | DX: Z12.31 Encounter for screening mammogram for malignant neoplasm of breast (principal); Z91.89 Other specified personal risk factors, not elsewhere classified | CPT/HCPCS: 77063; 77067 ==

== ENCOUNTER 2024-01-14 09:56 | Outpatient (CLI) | payer MEDICARE | END 2024-01-14 09:57 | disposition home or self-care (01) | LOC: BICMAMMO 09:56 | PROVIDERS: ATTEND Internal Medicine | DX: Z12.31 Encounter for screening mammogram for malignant neoplasm of breast (principal); Z91.89 Other specified personal risk factors, not elsewhere classified | CPT/HCPCS: 77063; 77067 ==